=== PATIENT | male | born 1970 | race Caucasian/White ===

== ENCOUNTER 2018-03-02 17:13 | Emergency (ER) | payer OTHER ==
[~2018-03-02] VITALS: Ht 177.8 cm; Wt 85.0 kg
[2018-03-02 17:18] VITALS: BP 124/90
[2018-03-02] MEDS ORDERED: SULF1TAB49 PO (18:28)
[2018-03-02] MEDS ORDERED: CEPH500C5 PO (18:28)
== END 2018-03-02 18:43 | disposition home or self-care (01) ==
LOC: ER 17:14
DX: L02.411 Cutaneous abscess of right axilla (principal); L03.111 Cellulitis of right axilla
CPT/HCPCS: 99283